=== PATIENT | male | born 1995 | race Caucasian/White ===

== ENCOUNTER 2017-12-30 17:39 | Emergency (ER) | payer OTHER ==
[2017-12-30] MEDS ORDERED: methylPREDNISolone SOD SUCC 125 MG/2 ML VIAL IVP ONE (17:47)
[2017-12-30] MEDS ORDERED: FAMOTIDINE 20 MG/2 ML SDV IVP ONE (17:47)
[2017-12-30] MEDS ORDERED: NS 1,000 ML IV ONE (17:48)
--- NOTE | 2017-12-30 17:52 | EDPHY ---
H & P Time Seen by Provider: 12/30/17 17:43 HPI/ROS: CHIEF COMPLAINT: Allergic reaction to a bee sting HISTORY OF PRESENT ILLNESS: The patient is a 22-year-old male with no significant past medical history reports he was stung on the right side of his anterior neck by a bee approximately 1 hr ago. Within a few minutes he had itching to the area and then developed full body hives and pruritus. Denies any trouble breathing, tongue swelling, lip swelling. He states he has no history of anaphylaxis but he does state that once as EKG was stung by a bee and "they gave me a shot of epi and then I was log to go back and play." He does not carry an EpiPen. He takes no prescribed medication. He denies any drug or alcohol use currently. Denies any allergies to medication. REVIEW OF SYSTEMS: Constitutional: No fever, no chills. Eyes: No discharge. ENT: No sore throat. Cardiovascular: No chest pain, no palpitations. Respiratory: No cough, no shortness of breath. Gastrointestinal: No abdominal pain, no vomiting. Genitourinary: No hematuria. Musculoskeletal: No back pain. Skin: + hives Neurological: No headache. Smoking Status: Never smoked Physical Exam: General Appearance: Alert and no distress. No respiratory distress Head: No angioedema, lip swelling. Diffuse urticaria to the face ENT: Normal-appearing tongue, no uvula swelling Eyes: Pupils equal and round no injection. Respiratory: Chest is nontender, lungs are clear to auscultation. No stridor or wheezing Cardiac: regular rate and rhythm. Gastrointestinal: Abdomen is soft and nontender, no masses, bowel sounds normal. Musculoskeletal: Neck is supple and nontender. Extremities have full range of motion and are nontender. Skin: Diffuse urticaria to the neck and upper extremities Constitutional: Initial Vital Signs Temperature (C) 36.6 C 12/30/17 17:43 Heart Rate 104 H 12/30/17 17:43 Respiratory Rate 22 H 12/30/17 17:43 Blood Pressure 141/64 H 12/30/17 17:43 O2 Sat (%) 96 12/30/17 17:43 O2 Delivery Mode Room Air Allergies/Adverse Reactions: No Known Allergies Allergy (Unverified 12/30/17 17:45) Home Medications: Medication Instructions Recorded EPINEPHrine [Epipen 0.3 MG] 0.3 mg IM ONCE #2 syr 12/30/17 predniSONE 60 mg PO DAILY 2 Days #6 tab 12/30/17 Medical Decision Making ED Course/Re-evaluation: 22-year-old male here with large reaction to a bee sting just prior to arrival. He was given 125 Solu-Medrol 50 of IV Benadryl and 20 of Pepcid I V. Addition is given a L of normal saline and felt significantly improved. He was observed for 1 hr and requesting discharge. He is discharged home on 2 days steroids and given an epi pen. We discussed use of Claritin daily. No evidence of anaphylaxis, angioedema, hypotension, drug eruption on exam. - Data Points Medications Given: Discontinued Medications Diphenhydramine HCl (Benadryl Injection) 50 mg IVP EDNOW ONE Stop: 12/30/17 17:48 Last Admin: 12/30/17 18:01 Dose: 50 mg Famotidine (Pepcid) 20 mg IVP EDNOW ONE Stop: 12/30/17 17:48 Last Admin: 12/30/17 18:01 Dose: 20 mg Sodium Chloride (Ns) 1,000 mls @ 0 mls/hr IV EDNOW ONE; Wide Open PRN Reason: Protocol Stop: 12/30/17 17:49 Last Admin: 12/30/17 18:00 Dose: 1,000 mls Methylprednisolone Sodium Succinate (Solu-Medrol) 125 mg IVP EDNOW ONE Stop: 12/30/17 17:48 Last Admin: 12/30/17 18:01 Dose: 125 mg Departure - Departure Disposition: Home, Routine, Self-Care Clinical Impression: Allergic reaction to bee sting Condition: Good Instructions: Urticaria (ED), Anaphylaxis (ED) Additional Instructions: Take 60 mg of prednisone tomorrow and the next day. This steroid. Additionally take 10 mg of loratadine/Claritin daily for the next 5 days. This is an antihistamine. You're also being prescribed an EpiPen. He may use this for any signs of anaphylaxis which includes trouble breathing, tongue swelling, chest tightness, throat tightness associated with your allergic reaction. If you have any these changes symptoms use your EpiPen and go directly to the emergency room. Referrals: Patient,NotPresent [Unknown] - As per Instructions [facility],. [Clinic] - As per Instructions Prescriptions: EPINEPHrine [Epipen 0.3 MG] 0.3 mg IM ONCE #2 syr predniSONE 60 mg PO DAILY 2 Days #6 tab
[2017-12-30 19:21] VITALS: BP 128/78
[2017-12-30] MEDS ORDERED: RANITIDINE 50 MG/2 ML VIAL ONE (21:00)
== END 2017-12-30 19:19 | disposition home or self-care (01) ==
DX: T63.441A Toxic effect of venom of bees, accidental (unintentional), initial encounter (principal); E86.9 Volume depletion, unspecified
CPT/HCPCS: 96374; J1200; J2780; J2930